=== PATIENT | male | born 1975 | race Hispanic/Latino ===

== ENCOUNTER 2019-02-26 20:06 | Inpatient (IN) | payer SELFPAY ==
[2019-02-26] MEDS ORDERED: NACL 0.9% 1000 ML 1,000 ML IV ONE (20:13)
--- NOTE | 2019-02-26 20:20 | Emergency Department Report ---
ED Altered Mental Status HPI - General Stated Complaint: COMBATIVE Time Seen by Provider: 02/26/19 20:11 Source: police, EMS Mode of arrival: Stretcher Limitations: Altered Mental Status - History of Present Illness Initial Comments: Patient is a 41-year-old male since emergency room for unresponsiveness. Patient was found in his car unresponsive by the police. Patient then woke up and became combative and EMS gave the patient Haldol and Ativan and Benadryl. Patient is currently is currently asleep but is responsive to pain. EMS states that the patient was in his car this in the [place] [address] [place] park and unresponsive. Complaint: altered mental status, decreased responsiveness -: Sudden - Related Data Allergies Allergy/AdvReac Type Severity Reaction Status Date / Time Unable to Assess Allergy Unverified 02/26/19 20:52 ED Review of Systems ROS: Stated complaint: COMBATIVE Other details as noted in HPI Comment: Unobtainable due to pts medical conditions ED Past Medical Hx - Past Medical History Previous Medical History?: No - Surgical History Past Surgical History?: No - Family History Family history: no significant - Social History Smoking Status: Unknown if ever smoked Substance Use Type: None ED Physical Exam - General Limitations: Altered Mental Status, Physical Limitation General appearance: obtunded - Head Head exam: Present: atraumatic, normocephalic - Eye Eye exam: Present: normal appearance, PERRL Pupils: Present: normal accommodation - ENT ENT exam: Present: mucous membranes dry - Neck Neck exam: Present: normal inspection - Respiratory Respiratory exam: Present: normal lung sounds bilaterally. Absent: respiratory distress, wheezes, rales - Cardiovascular Cardiovascular Exam: Present: regular rate, normal rhythm. Absent: systolic murmur, diastolic murmur, rubs, gallop - GI/Abdominal GI/Abdominal exam: Present: soft, normal bowel sounds. Absent: distended, tend erness, guarding - Rectal Rectal exam: Present: deferred - Extremities Exam Extremities exam: Present: normal inspection - Back Exam Back exam: Present: normal inspection - Neurological Exam Neurological exam: Present: altered - Expanded Neurological Exam Expanded Best Eye Response ([place]): (2) open to pain Best Motor Response (Jesse): (4) withdraws to pain Best Verbal Response ([place]): (2) incomprehsible sounds Jesse Total: 8 - Skin Skin exam: Present: warm, dry, intact, normal color. Absent: rash - Assessment Assessment Interval: Baseline - Level of Consciousness 1a. Level of Consciousness: arousable/minor stimuli - LOC Questions 1b. LOC Questions: answers no questions correctly - LOC Command 1c. LOC Commands: performs no tasks correctly - Best Gaze 2. Best Gaze: normal - Visual 3. Visual: no visual loss - Facial Palsy 4. Facial Palsy: normal symmetrical movement - Motor Arm 5a. Motor Arm Left: some gravity effort 5b. Motor Arm Right: some gravity effort - Motor Leg 6a. Motor Leg Left: some gravity effort 6b. Motor Leg Right: some gravity effort - Limb Ataxia 7. Limb Ataxia: absent - Sensory 8. Sensory: normal - Best Language 9. Best Language: coma/unresponsive - Dysarthria 10. Dysarthria: intubated or other barrier - Extinction and Inattention 11. Extinction/Inattention: no abnormality - Scoring Total Score: 16 Stroke Severity: Moderate to Severe Stroke ED Course Vital Signs 02/26/19 02/26/19 02/26/19 20:43 21:00 22:00 Temperature 98 F Pulse Rate 82 73 77 Respiratory 17 16 14 Rate Blood Pressure 148/96 149/93 135/91 Blood Pressure 148/96 [Right] O2 Sat by Pulse 95 94 95 Oximetry 02/26/19 02/26/19 02/27/19 23:00 23:39 00:00 Temperature Pulse Rate 81 74 Respiratory 19 16 22 Rate Blood Pressure 150/94 135/91 152/84 Blood Pressure [Right] O2 Sat by Pulse 97 95 97 Oximetry 02/27/19 01:01 Temperature Pulse Rate 79 Respiratory 21 Rate Blood Pressure 143/83 Blood Pressure [Right] O2 Sat by Pulse 96 Oximetry - Reevaluation(s) Reevaluation #1: Patient still resting and responsive to pain. 02/26/19 20:40 Reevaluation #2: Patient becoming more arousable and patient now opening eyes to painful stimuli 02/26/19 22:40 Reevaluation #3: Patient still somnolent. Patient resting in bed. Patient is arousable to pain. Patient makes incomprehensible sounds still 02/26/19 23:40 Reevaluation #4: Patient has not improved. Patient is still very somnolent. Patient will be admitted to the hospitalist service. 02/27/19 00:57 - Consultations Consultation #1: I consulted hospitalist on her. Hospitalist agrees with admission. Hospitalist will admit patient 02/27/19 00:57 - Lab Data Result diagrams: 02/26/19 20:23 02/26/19 20:23 Lab Results 02/26/19 02/26/19 02/26/19 Range/Units 20:23 20:23 20:23 WBC 6.1 (4.5-11.0) K/mm3 RBC 4.77 (3.65-5.03) M/mm3 Hgb 14.9 (11.8-15.2) gm/dl Hct 43.0 (35.5-45.6) % MCV 90 (84-94) fl MCH 31 (28-32) pg MCHC 35 H (32-34) % RDW 13.4 (13.2-15.2) % Plt Count 205 (140-440) K/mm3 Lymph % (Auto) 22.2 (13.4-35.0) % [place] % (Auto) 6.4 (0.0-7.3) % Eos % (Auto) 2.0 (0.0-4.3) % Baso % (Auto) 1.0 (0.0-1.8) % Lymph # 1.4 (1.2-5.4) K/mm3 [place] # 0.4 (0.0-0.8) K/mm3 Eos # 0.1 (0.0-0.4) K/mm3 Baso # 0.1 (0.0-0.1) K/mm3 Seg Neutrophils % 68.4 (40.0-70.0) % Seg Neutrophils # 4.2 (1.8-7.7) K/mm3 Sodium 143 (137-145) mmol/L Potassium 3.6 (3.6-5.0) mmol/L Chloride 105.0 (98-107) mmol/L Carbon Dioxide 22 (22-30) mmol/L Anion Gap 20 mmol/L BUN 11 (9-20) mg/dL Creatinine 1.0 (0.8-1.5) mg/dL Estimated GFR > 60 ml/min BUN/Creatinine Ratio 11 % Glucose 117 H (75-100) mg/dL POC Glucose (70-105) Calcium 9.3 (8.4-10.2) mg/dL Total Bilirubin 0.30 (0.1-1.2) mg/dL AST 19 (5-40) units/L ALT 29 (7-56) units/L Alkaline Phosphatase 104 (35-129) units/L Ammonia 63.0 H (25-60) umol/L Total Creatine Kinase 300 H (55-170) units/L Total Protein 7.6 (6.3-8.2) g/dL Albumin 4.3 (3.9-5) g/dL Albumin/Globulin Ratio 1.3 % Urine Color (Yellow) Urine Turbidity (Clear) Urine pH (5.0-7.0) Ur Specific [place] (1.003-1.030) Urine Protein (Negative) mg/dL Urine Glucose (UA) (Negative) mg/dL Urine Ketones (Negative) mg/dL Urine Blood (Negative) Urine Nitrite (Negative) Urine Bilirubin (Negative) Urine Urobilinogen (<2.0) mg/dL Ur Leukocyte Esterase (Negative) Urine WBC (Auto) (0.0-6.0) /HPF Urine RBC (Auto) (0.0-6.0) /HPF U Epithel Cells (Auto) (0-13.0) /HPF Hyaline Casts /LPF Urine Mucus /HPF Salicylates (2.8-20.0) mg/dL Urine Opiates Screen Urine Methadone Screen Acetaminophen (10.0-30.0) ug/mL Ur Barbiturates Screen Ur Phencyclidine Scrn Ur Amphetamines Screen U Benzodiazepines Scrn Urine Cocaine Screen U Marijuana (THC) Screen Drugs of Abuse Note Plasma/Serum Alcohol (0-0.07) % 02/26/19 02/26/19 02/26/19 Range/Units 20:23 20:23 20:23 WBC (4.5-11.0) K/mm3 RBC (3.65-5.03) M/mm3 Hgb (11.8-15.2) gm/dl Hct (35.5-45.6) % MCV (84-94) fl MCH (28-32) pg MCHC (32-34) % RDW (13.2-15.2) % Plt Count (140-440) K/mm3 Lymph % (Auto) (13.4-35.0) % [place] % (Auto) (0.0-7.3) % Eos % (Auto) (0.0-4.3) % Baso % (Auto) (0.0-1.8) % Lymph # (1.2-5.4) K/mm3 [place] # (0.0-0.8) K/mm3 Eos # (0.0-0.4) K/mm3 Baso # (0.0-0.1) K/mm3 Seg Neutrophils % (40.0-70.0) % Seg Neutrophils # (1.8-7.7) K/mm3 Sodium (137-145) mmol/L Potassium (3.6-5.0) mmol/L Chloride (98-107) mmol/L Carbon Dioxide (22-30) mmol/L Anion Gap mmol/L BUN (9-20) mg/dL Creatinine (0.8-1.5) mg/dL Estimated GFR ml/min BUN/Creatinine Ratio % Glucose (75-100) mg/dL POC Glucose (70-105) Calcium (8.4-10.2) mg/dL Total Bilirubin (0.1-1.2) mg/dL AST (5-40) units/L ALT (7-56) units/L Alkaline Phosphatase (35-129) units/L Ammonia (25-60) umol/L Total Creatine Kinase (55-170) units/L Total Protein (6.3-8.2) g/dL Albumin (3.9-5) g/dL Albumin/Globulin Ratio % Urine Color (Yellow) Urine Turbidity (Clear) Urine pH (5.0-7.0) Ur Specific [place] (1.003-1.030) Urine Protein (Negative) mg/dL Urine Glucose (UA) (Negative) mg/dL Urine Ketones (Negative) mg/dL Urine Blood (Negative) Urine Nitrite (Negative) Urine Bilirubin (Negative) Urine Urobilinogen (<2.0) mg/dL Ur Leukocyte Esterase (Negative) Urine WBC (Auto) (0.0-6.0) /HPF Urine RBC (Auto) (0.0-6.0) /HPF U Epithel Cells (Auto) (0-13.0) /HPF Hyaline Casts /LPF Urine Mucus /HPF Salicylates < 0.3 L (2.8-20.0) mg/dL Urine Opiates Screen Urine Methadone Screen Acetaminophen < 5.0 L (10.0-30.0) ug/mL Ur Barbiturates Screen Ur Phencyclidine Scrn Ur Amphetamines Screen U Benzodiazepines Scrn Urine Cocaine Screen U Marijuana (THC) Screen Drugs of Abuse Note Plasma/Serum Alcohol < 0.01 (0-0.07) % 02/26/19 02/26/19 02/26/19 Range/Units 20:26 21:10 21:10 WBC (4.5-11.0) K/mm3 RBC (3.65-5.03) M/mm3 Hgb (11.8-15.2) gm/dl Hct (35.5-45.6) % MCV (84-94) fl MCH (28-32) pg MCHC (32-34) % RDW (13.2-15.2) % Plt Count (140-440) K/mm3 Lymph % (Auto) (13.4-35.0) % [place] % (Auto) (0.0-7.3) % Eos % (Auto) (0.0-4.3) % Baso % (Auto) (0.0-1.8) % Lymph # (1.2-5.4) K/mm3 [place] # (0.0-0.8) K/mm3 Eos # (0.0-0.4) K/mm3 Baso # (0.0-0.1) K/mm3 Seg Neutrophils % (40.0-70.0) % Seg Neutrophils # (1.8-7.7) K/mm3 Sodium (137-145) mmol/L Potassium (3.6-5.0) mmol/L Chloride (98-107) mmol/L Carbon Dioxide (22-30) mmol/L Anion Gap mmol/L BUN (9-20) mg/dL Creatinine (0.8-1.5) mg/dL Estimated GFR ml/min BUN/Creatinine Ratio % Glucose (75-100) mg/dL POC Glucose 117 H (70-105) Calcium (8.4-10.2) mg/dL Total Bilirubin (0.1-1.2) mg/dL AST (5-40) units/L ALT (7-56) units/L Alkaline Phosphatase (35-129) units/L Ammonia (25-60) umol/L Total Creatine Kinase (55-170) units/L Total Protein (6.3-8.2) g/dL Albumin (3.9-5) g/dL Albumin/Globulin Ratio % Urine Color Yellow (Yellow) Urine Turbidity Clear (Clear) Urine pH 5.0 (5.0-7.0) Ur Specific [place] 1.025 (1.003-1.030) Urine Protein <15 mg/dl (Negative) mg/dL Urine Glucose (UA) Neg (Negative) mg/dL Urine Ketones Tr (Negative) mg/dL Urine Blood Sm (Negative) Urine Nitrite Neg (Negative) Urine Bilirubin Neg (Negative) Urine Urobilinogen 4.0 (<2.0) mg/dL Ur Leukocyte Esterase Neg (Negative) Urine WBC (Auto) 1.0 (0.0-6.0) /HPF Urine RBC (Auto) 19.0 (0.0-6.0) /HPF U Epithel Cells (Auto) < 1.0 (0-13.0) /HPF Hyaline Casts 3 /LPF Urine Mucus Few /HPF Salicylates (2.8-20.0) mg/dL Urine Opiates Screen Presumptive negative Urine Methadone Screen Presumptive negative Acetaminophen (10.0-30.0) ug/mL Ur Barbiturates Screen Presumptive negative Ur Phencyclidine Scrn Presumptive negative Ur Amphetamines Screen Presumptive positive U Benzodiazepines Scrn Presumptive negative Urine Cocaine Screen Presumptive negative U Marijuana (THC) Screen Presumptive negative Drugs of Abuse Note Disclamer Plasma/Serum Alcohol (0-0.07) % - Radiology Data Radiology results: report reviewed CT HEAD WITHOUT CONTRAST HISTORY: Altered Mental Status COMPARISON: None TECHNIQUE: CT imaging of the head was performed in the axial, sagittal, and coronal projections and bone algorithm in axial projection in the soft tissue algorithm. All CT scans at this location are performed using CT dose reduction for ALARA by means of automated exposure control. CONTRAST: None. FINDINGS: Cerebral and Cerebellar Hemispheres: No evidence of mass or mass effect. No midline shift. No acute hemorrhage. No acute cortical infarction. No extra-axial fluid collection. Ventricles: Normal in size and configuration for age. Osseous Structures: No significant abnormality. Visualized Paranasal Sinuses: No significant abnormality. Additional Findings: None IMPRESSION: 1. No acute intracranial abnormality. - Medical Decision Making Patient is a 41-year-old male the patient's emergency room for altered mental status, combative behavior and possible overdose. Patient found have amphetamines in his system. Patient given multiple medications by EMS and the patient never returned to baseline. Patient's GCS 8. Patient somnolent in the ER due to medications. Patient admitted to the hospital service for further evaluation and treatment. - Differential Diagnosis altered mental status, overdose. Combative behavior. encephalopathy Critical Care Time: Yes Critical care attestation.: If time is entered above; I have spent that time in minutes in the direct care of this critically ill patient, excluding procedure time. Critical Care Time: 45 minutes ED Disposition Clinical Impression: Unresponsive, Combative behavior, Lethargic, Encephalopathy acute Overdose Qualifiers: Encounter type: initial encounter Injury intent: undetermined intent Qualified Code(s): T50.904A - Poisoning by unspecified drugs, medicaments and biological substances, undetermined, initial encounter Altered mental state Qualifiers: Altered mental status type: unspecified Qualified Code(s): R41.82 - Altered mental status, unspecified Disposition: 09 OP ADMIT IP TO THIS HOSP Is pt being admited?: Yes Does the pt Need Aspirin: No Condition: Critical Referrals: TISHA IBARRA MD [Primary Care Provider] - 3-5 Days Time of Disposition: 01:00
[2019-02-26 20:50] LABS: Basophils # (Auto) 0.1 K/mm3 (0.0-0.1); Eosinophils # (Auto) 0.1 K/mm3 (0.0-0.4); Hemoglobin 14.9 gm/dl (11.8-15.2); Lymphocytes # (Auto) 1.4 K/mm3 (1.2-5.4); Lymphocytes % (Auto) 22.2 % (13.4-35.0); Mean Corpuscular HGB Conc 35 % (32-34); Mean Corpuscular Volume 90 fl (84-94); Monocytes # (Auto) 0.4 K/mm3 (0.0-0.8); Monocytes % (Auto) 6.4 % (0.0-7.3); Platelet Count 205 K/mm3 (140-440); Red Blood Count 4.77 M/mm3 (3.65-5.03); Red Cell Distribution Width 13.4 % (13.2-15.2)
--- NOTE | 2019-02-26 21:09 | Cat Scan Report ---
CT HEAD WITHOUT CONTRAST HISTORY: Altered Mental Status COMPARISON: None TECHNIQUE: CT imaging of the head was performed in the axial, sagittal, and coronal projections and bone algori thm in axial projection in the soft tissue algorithm. All CT scans at this location are performed using CT dose reduction for ALARA by means of automated e xposure control. CONTRAST: None. FINDINGS: Cerebral and Cerebellar Hemispheres: No evidence of mass or mass effect. No midline shift. No acute hemorrhage. No acute cortical infarction. No extra-axial fluid collection. Ventricles: Normal in size and configuration for age. Osseous Structures: No significant abnormality. Visualized Paranasal Sinuses: No significant abnormality. Additional Findings: None IMPRESSION: 1. No acute intracranial abnormality. NOTE: Acute infarct may not be visible by noncontrast CT. Signer Name: Joaquin Wolfe MD Signed: 02/26/2019 9:05 PM Workstation Name: [id number]
[2019-02-26 21:27] LABS: Alanine Aminotransferase 29 units/L (7-56); Albumin 4.3 g/dL (3.9-5); BUN/Creatinine Ratio 11; Blood Urea Nitrogen 11 mg/dL (9-20); Calcium 9.3 mg/dL (8.4-10.2); Hemolysis Index 6
[2019-02-26 22:13] LABS: Bilirubin,Urine NEG (Negative); Blood,Urine SM (Negative); Color,Urine Yellow (Yellow); Hyaline Casts,Urine 3 /LPF; Mucus,Urine FEW /HPF; Protein,Urine <15 mg/dL mg/dL (Negative)
[2019-02-26 22:21] LABS: Benzodiazepines Screen,Urine PRESUMPTIVE NEGATIVE; Cannabinoid Screen,Urine PRESUMPTIVE NEGATIVE; Cocaine Screen,Urine PRESUMPTIVE NEGATIVE; Methadone Screen,Urine PRESUMPTIVE NEGATIVE; Opiate Screen,Urine PRESUMPTIVE NEGATIVE
[2019-02-26 22:36] LABS: Amphetamine Screen,Urine PRESUMPTIVE POSITIVE
[2019-02-27] MEDS ORDERED: SODIUM CHLORIDE FLUSH SYRINGE 10 ML IV PRN (01:25)
[2019-02-27] MEDS ORDERED: TYLENOL PO PRN (01:25)
[2019-02-27] MEDS ORDERED: ZOFRAN IV PRN (01:25)
--- NOTE | 2019-02-27 01:33 | History and Physical Report ---
<EVA MCLEAN - Last Filed: 02/27/19 01:29> History of Present Illness Date of examination: 02/27/19 Date of admission: 02/27/2019 Chief complaint: AMS History of present illness: 41-year-old adult male with unknown past medical history who presents to [facility] ED via EMS complaints of altered mental status. Patient is sleeping/sedated and unable to provide history. History is taken from EMS report. Patient was found unresponsive in his car [place] on the highway [place] the wrong direction by the police. EMS was called. Upon EMS arrival pt woke up and became combative. He was given Haldol, Ativan, and Benadryl by EMS. Patient is currently is currently sleeping, but is responsive to pain. EMS states that the patient was in his car this [place] and unresponsive. Past History Past Medical History: other (unknown) Past Surgical History: Other (unknown) Social history: other (UDS positive for amphetamine smoking history unknown, alcohol history unknown) Family history: other (unknown) Medications and Allergies Allergies Allergy/AdvReac Type Severity Reaction Status Date / Time Unable to Assess Allergy Unverified 02/27/19 02:06 Review of Systems ROS unobtainable: due to mental status Exam - Physical Exam Narrative exam: Physical exam General appearance: Present: No acute distress, somnolent, opens eyes to painful stimulation and makes incomprehensible sounds, obese, adult male - EENT Eyes: Present: PERRL, ENT: hearing intact, normal dentition - Neck Neck: Present: supple, normal ROM - Respiratory Respiratory effort: Non-labored Respiratory: CTA bilaterally - Cardiovascular Heart rate: 82 (bpm) Rhythm: SR Heart Sounds: Present: S1 & S2. Absent: rub, click - Extremities Extremities: no ischemia, pulses intact, - Peripheral Assessment Peripheral Pulses: within normal limits - Abdominal General gastrointestinal: soft, non-tender, normal bowel sounds - Integumentary Integumentary: Present: warm, dry - Musculoskeletal Musculoskeletal: generalized weakness - Psychiatric Psychiatric: Unable to assess - Constitutional Vitals: Temp Pulse Resp BP Pulse Ox 98 F 79 21 143/83 96 02/26/19 20:43 02/27/19 01:01 02/27/19 01:01 02/27/19 01:01 02/27/19 01:01 Results - Labs CBC & Chem 7: 02/26/19 20:23 02/26/19 20: Labs: Laboratory Last Values WBC 6.1 K/mm3 (4.5-11.0) 02/26/19 20: RBC 4.77 M/mm3 (3.65-5.03) 02/26/19 20: Hgb 14.9 gm/dl (11.8-15.2) 02/26/19: Hct 43.0 % (35.5-45.6) 02/26/19 20: MCV 90 fl (84-94) 02/26/19 20: MCH 31 pg (28-32) 02/26/19: MCHC 35 % (32-34) H 02/26/19: RDW 13.4 % (13.2-15.2) 02/26/19 20: Plt Count 205 K/mm3 (140-440) 02/26/19 20: Lymph % (Auto) 22.2 % (13.4-35.0) 02/26/19 20: [place] % (Auto) 6.4 % (0.0-7.3) 02/26/19 20: Eos % (Auto) 2.0 % (0.0-4.3) 02/26/19: Baso % (Auto) 1.0 % (0.0-1.8) 02/26/19: Lymph # 1.4 K/mm3 (1.2-5.4) 02/26/19: [place] # 0.4 K/mm3 (0.0-0.8) 02/26/19 20: Eos # 0.1 K/mm3 (0.0-0.4) 02/26/19 20: Baso # 0.1 K/mm3 (0.0-0.1) 02/26/19: Seg Neutrophils % 68.4 % (40.0-70.0) 02/26/19 20: Seg Neutrophils # 4.2 K/mm3 (1.8-7.7) 02/26/19 20: Sodium 143 mmol/L (137-145) 02/26/19 20: Potassium 3.6 mmol/L (3.6-5.0) 02/26/19 20:23 Chloride 105.0 mmol/L (98-107) 02/26/19 20:23 Carbon Dioxide 22 mmol/L (22-30) 02/26/19 20:23 20 mmol/L 02/26/19 20:23 BUN 11 mg/dL (9-20) 02/26/19 20:23 1.0 mg/dL (0.8-1.5) 02/26/19 20:23 Estimated GFR > 60 ml/min 02/26/19 20:23 11 % 02/26/19 20:23 Glucose 117 mg/dL (75-100) H 02/26/19 20:23 POC Glucose 117 (70-105) H 02/26/19 20:26 Calcium 9.3 mg/dL (8.4-10.2) 02/26/19 20:23 0.30 mg/dL (0.1-1.2) 02/26/19 20:23 AST 19 units/L (5-40) 02/26/19 20:23 ALT 29 units/L (7-56) 02/26/19 20:23 104 units/L (35-129) 02/26/19 20:23 63.0 umol/L (25-60) H 02/26/19 20:23 300 units/L (55-170) H 02/26/19 20:23 7.6 g/dL (6.3-8.2) 02/26/19 20:23 4.3 g/dL (3.9-5) 02/26/19 20:23 1.3 % 02/26/19 20:23 Yellow (Yellow) 02/26/19 21:10 Clear (Clear) 02/26/19 21:10 5.0 (5.0-7.0) 02/26/19 21:10 Ur Specific [place] 1.025 (1.003-1.030) 02/26/19 21:10 <15 mg/dl mg/dL (Negative) 02/26/19 21:10 Neg mg/dL (Negative) 02/26/19 21:10 Tr mg/dL (Negative) 02/26/19 21:10 Sm (Negative) 02/26/19 21:10 Neg (Negative) 02/26/19 21:10 Neg (Negative) 02/26/19 21:10 4.0 mg/dL (<2.0) 02/26/19 21:10 Ur Leukocyte Esterase Neg (Negative) 02/26/19 21:10 1.0 /HPF (0.0-6.0) 02/26/19 21:10 19.0 /HPF (0.0-6.0) 02/26/19 21:10 U Epithel Cells (Auto) < 1.0 /HPF (0-13.0) 02/26/19 21:10 Hyaline Casts 3 /LPF 02/26/19 21:10 Few /HPF 02/26/19 21:10 Salicylates < 0.3 mg/dL (2.8-20.0) L 02/26/19 20:23 Presumptive negative 02/26/19 21:10 Presumptive negative 02/26/19 21:10 Acetaminophen < 5.0 ug/mL (10.0-30.0) L 02/26/19 20:23 Ur Barbiturates Screen Presumptive negative 02/26/19 21:10 Ur Phencyclidine Scrn Presumptive negative 02/26/19 21:10 Ur Amphetamines Screen Presumptive positive 02/26/19 21:10 U Benzodiazepines Scrn Presumptive negative 02/26/19 21:10 Presumptive negative 02/26/19 21:10 U Marijuana (THC) Screen Presumptive negative 02/26/19 21:10 Disclamer 02/26/19 21:10 Plasma/Serum Alcohol < 0.01 % (0-0.07) 02/26/19 20:23 - Imaging and Cardiology Imaging and Cardiology: CT Head: FINDINGS: Cerebral and Cerebellar Hemispheres: No evidence of mass or mass effect. No midline shift. No acute hemorrhage. No acute cortical infarction. No extra-axial fluid collection. Ventricles: Normal in size and configuration for age. Osseous Structures: No significant abnormality. Visualized Paranasal Sinuses: No significant abnormality. Additional Findings: None IMPRESSION: 1. No acute intracranial abnormality. Assessment and Plan Assessment and plan: 41-year-old adult male with unknown past medical history who presents to [facility] ED via EMS after being found in car unresponsive by the police. Acute encephalopathy -Likely metabolic -Ammonia mildly elevated at 63 -Presently somnolent, arousable to pain, and makes incomprehensible sounds -CT head negative -UA negative -UDS positive for amphetamines -Hydration with IVF -Neuro checks -IV Ativan when necessary for agitation Elevated blood pressure -Baseline unknown -Currently BP 148/96 -Continue to monitor BP -IV hydralazine when necessary DVT PPX -Lovenox Advance Directives: No VTE prophylaxis?: Chemical <ROC ESPINO - Last Filed: 02/27/19 03:37> History of Present Illness Date of admission: 02/27/19 01:25 Medications and Allergies Active Meds: Active Medications Acetaminophen (Tylenol) 650 mg PO Q4H PRN PRN Reason: Pain MILD(1-3)/Fever >100.5/TOVAR Enoxaparin Sodium (Lovenox) 40 mg SUB-Q QDAY TAMIKO Sodium Chloride (Nacl 0.9% 1000 Ml) 1,000 mls @ 100 mls/hr IV DIRECT TAMIKO Last Admin: 02/27/19 02:52 Dose: 100 mls/hr Documented by: Lorazepam (Ativan) 2 mg IV Q4H PRN PRN Reason: Agitation Ondansetron HCl (Zofran) 4 mg IV Q6H PRN PRN Reason: Nausea And Vomiting Sodium Chloride (Sodium Chloride Flush Syringe 10 Ml) 10 ml IV BID TAMIKO Sodium Chloride (Sodium Chloride Flush Syringe 10 Ml) 10 ml IV PRN PRN PRN Reason: LINE FLUSH Exam - Constitutional Vitals: Temp Pulse Resp BP Pulse Ox 98 F 80 16 129/85 96 02/26/19 20:43 02/27/19 03:00 02/27/19 03:00 02/27/19 03:00 02/27/19 01:01 Results - Labs CBC & Chem 7: 02/26/19 20:23 02/26/19 20:23 Labs: Laboratory Last Values WBC 6.1 K/mm3 (4.5-11.0) 02/26/19 20:23 RBC 4.77 M/mm3 (3.65-5.03) 02/26/19 20:23 Hgb 14.9 gm/dl (11.8-15.2) 02/26/19 20:23 Hct 43.0 % (35.5-45.6) 02/26/19 20:23 MCV 90 fl (84-94) 02/26/19 20:23 MCH 31 pg (28-32) 02/26/19 20:23 MCHC 35 % (32-34) H 02/26/19 20:23 RDW 13.4 % (13.2-15.2) 02/26/19 20:23 Plt Count 205 K/mm3 (140-440) 02/26/19 20:23 Lymph % (Auto) 22.2 % (13.4-35.0) 02/26/19 20:23 [place] % (Auto) 6.4 % (0.0-7.3) 02/26/19 20:23 Eos % (Auto) 2.0 % (0.0-4.3) 02/26/19 20:23 Baso % (Auto) 1.0 % (0.0-1.8) 02/26/19 20:23 Lymph # 1.4 K/mm3 (1.2-5.4) 02/26/19 20:23 [place] # 0.4 K/mm3 (0.0-0.8) 02/26/19 20:23 Eos # 0.1 K/mm3 (0.0-0.4) 02/26/19 20:23 Baso # 0.1 K/mm3 (0.0-0.1) 02/26/19 20:23 Seg Neutrophils % 68.4 % (40.0-70.0) 02/26/19 20:23 Seg Neutrophils # 4.2 K/mm3 (1.8-7.7) 02/26/19 20:23 Sodium 143 mmol/L (137-145) 02/26/19 20:23 Potassium 3.6 mmol/L (3.6-5.0) 02/26/19 20:23 Chloride 105.0 mmol/L (98-107) 02/26/19 20:23 Carbon Dioxide 22 mmol/L (22-30) 02/26/19 20:23 20 mmol/L 02/26/19 20:23 BUN 11 mg/dL (9-20) 02/26/19 20:23 1.0 mg/dL (0.8-1.5) 02/26/19 20:23 Estimated GFR > 60 ml/min 02/26/19 20:23 11 % 02/26/19 20:23 Glucose 117 mg/dL (75-100) H 02/26/19 20:23 POC Glucose 117 (70-105) H 02/26/19 20:26 Calcium 9.3 mg/dL (8.4-10.2) 02/26/19 20:23 0.30 mg/dL (0.1-1.2) 02/26/19 20:23 AST 19 units/L (5-40) 02/26/19 20:23 ALT 29 units/L (7-56) 02/26/19 20:23 104 units/L (35-129) 02/26/19 20:23 63.0 umol/L (25-60) H 02/26/19 20:23 300 units/L (55-170) H 02/26/19 20:23 7.6 g/dL (6.3-8.2) 02/26/19 20:23 4.3 g/dL (3.9-5) 02/26/19 20:23 1.3 % 02/26/19 20:23 Yellow (Yellow) 02/26/19 21:10 Clear (Clear) 02/26/19 21:10 5.0 (5.0-7.0) 02/26/19 21:10 Ur Specific [place] 1.025 (1.003-1.030) 02/26/19 21:10 <15 mg/dl mg/dL (Negative) 02/26/19 21:10 Neg mg/dL (Negative) 02/26/19 21:10 Tr mg/dL (Negative) 02/26/19 21:10 Sm (Negative) 02/26/19 21:10 Neg (Negative) 02/26/19 21:10 Neg (Negative) 02/26/19 21:10 4.0 mg/dL (<2.0) 02/26/19 21:10 Ur Leukocyte Esterase Neg (Negative) 02/26/19 21:10 1.0 /HPF (0.0-6.0) 02/26/19 21:10 19.0 /HPF (0.0-6.0) 02/26/19 21:10 U Epithel Cells (Auto) < 1.0 /HPF (0-13.0) 02/26/19 21:10 Hyaline Casts 3 /LPF 02/26/19 21:10 Few /HPF 02/26/19 21:10 Salicylates < 0.3 mg/dL (2.8-20.0) L 02/26/19 20:23 Presumptive negative 02/26/19 21:10 Presumptive negative 02/26/19 21:10 Acetaminophen < 5.0 ug/mL (10.0-30.0) L 02/26/19 20:23 Ur Barbiturates Screen Presumptive negative 02/26/19 21:10 Ur Phencyclidine Scrn Presumptive negative 02/26/19 21:10 Ur Amphetamines Screen Presumptive positive 02/26/19 21:10 U Benzodiazepines Scrn Presumptive negative 02/26/19 21:10 Presumptive negative 02/26/19 21:10 U Marijuana (THC) Screen Presumptive negative 02/26/19 21:10 Disclamer 02/26/19 21:10 Plasma/Serum Alcohol < 0.01 % (0-0.07) 02/26/19 20:23 Assessment and Plan Assessment and plan: I personally discussed the pt with the GIS MAPPING TECHNICIANLaurenC, Eva Mclean and I agree with the above assessment and plan.
[2019-02-27] MEDS ORDERED: ATIVAN IV PRN (01:54)
[2019-02-27] MEDS ORDERED: NACL 0.9% 1000 ML 1,000 ML IV SCH (02:00)
[2019-02-27 08:33] LABS: BUN/Creatinine Ratio 9; Blood Urea Nitrogen 8 mg/dL (9-20); Calcium 8.9 mg/dL (8.4-10.2); Hemolysis Index 34
[2019-02-27] MEDS ORDERED: LOVENOX SUB-Q SCH (10:00)
[2019-02-27] MEDS ORDERED: SODIUM CHLORIDE FLUSH SYRINGE 10 ML IV SCH (10:00)
--- NOTE | 2019-02-27 14:26 | Event Note ---
Date: 02/27/19 Patient admitted with altered mental status. He is now awake,alert. I have seen and examined him. Cont current management.
[2019-02-27 20:16] VITALS: BP 126/77
== END 2019-02-27 20:59 | disposition left against medical advice (07) | DRG 918 ==
LOC: ED 20:06 → EDBD 02-27 01:25 → 4A 02-27 01:25
PROVIDERS: ADMIT Internal Medicine; ATTEND Internal Medicine
DX: T50.991A Poisoning by other drugs, medicaments and biological substances, accidental (unintentional), initial encounter (principal); G93.40 Encephalopathy, unspecified; Y92.098 Other place in other non-institutional residence as the place of occurrence of the external cause
CPT/HCPCS: 36415; 70450; 80048; 80053; 80307; 80320; 81001; 82140; 82550; 82962; 85025; G0378; G0480; J1650; J7030